=== PATIENT | male | born 1940 | race Caucasian/White ===

== ENCOUNTER 2018-02-07 02:08 | Emergency (ER) | payer MEDICARE, OTHER ==
[~2018-02-07] VITALS: Ht 182.9 cm; Wt 91.0 kg
[2018-02-07 03:11] VITALS: BP 118/72
[2018-02-07] MEDS ORDERED: PIPERACILLIN SODIUM/TAZOBACTAM 4.5 G in DEXT 5% WATER 100 ML IV SCH (03:15)
[2018-02-07] MEDS ORDERED: VANCOMYCIN 1 G PREMIX 200 ML IV SCH (03:15)
[2018-02-07] MEDS ORDERED: AZITHROMYCIN 500 MG in DEXT 5% WATER 250 ML IV SCH (03:15)
[2018-02-07] MEDS ORDERED: ACETAMINOPHEN 650MG SUPP PR SCH (03:25)
[2018-02-07 03:57] LABS: HEMATOCRIT. 40.7 % (42.0-52.0); HEMOGLOBIN. 13.4 g/dL (14.0-18.0); MEAN CORPUSCULAR HEMOGLOBIN 27.1 pg (28.0-32.0); MEAN CORPUSCULAR VOLUME 82.1 fL (80.0-94.0); MEAN PLATELET VOLUME 8.1 fl (7.4-10.4); PLATELET 283 x1000/uL (130-400); RED BLOOD CELL COUNT 4.95 mill/uL (4.7-6.1); RED CELL DISTRIBUTION WIDTH 13.7 % (11.6-14.6)
[2018-02-07 04:11] LABS: CHLORIDE 104 mEq/L (98-107)
[2018-02-07 04:15] LABS: INR 1.1; PARTIAL THROMBOPLASTIN TIME 30.8 sec (23.4-31.0); PROTHROMBIN TIME 11.3 sec (9.1-11.1)
[2018-02-07 04:20] LABS: CREATINE KINASE 87 IU/L (39-308)
[2018-02-07 05:38] LABS: PLATELET ESTIMATE NORMAL
== END 2018-02-07 05:44 | disposition left against medical advice (07) ==
LOC: ER 02:08 → CANBEDREQ 06:06
DX: A41.9 Sepsis, unspecified organism (principal); I10 Essential (primary) hypertension; F03.90 Unspecified dementia, unspecified severity, without behavioral disturbance, psychotic disturbance, mood disturbance, and anxiety; Z53.21 Procedure and treatment not carried out due to patient leaving prior to being seen by health care provider; Z85.46 Personal history of malignant neoplasm of prostate
CPT/HCPCS: 36415; 71045; 80053; 82550; 83605; 83690; 84145; 84484; 85025; 85610; 85730; 87040; 87804; 96365; 96366; 96368; 99291; J2543; J3370; J0456; J7060

== ENCOUNTER 2020-12-11 21:16 | Emergency (ER) | payer MEDICARE ==
[~2020-12-11] VITALS: Ht 177.8 cm; Wt 68.0 kg
[2020-12-11 21:43] VITALS: BP 135/61
[2020-12-11 22:10] LABS: BASOPHILS % 0.5 % (0.0-2.0); EOSINOPHILS % 1.3 % (0.0-5.0); HEMATOCRIT. 41.2 % (42.0-52.0); HEMOGLOBIN. 13.7 g/dL (14.0-18.0); MEAN CORPUSCULAR HEMOGLOBIN 27.2 pg (28.0-32.0); MEAN CORPUSCULAR VOLUME 81.7 fL (80.0-94.0); MEAN PLATELET VOLUME 7.9 fl (7.4-10.4); MONOCYTES % 11.3 % (2.0-8.0); NEUTROPHILS % 64.9 % (40.0-76.0); PLATELET 346 x1000/uL (130-400); RED BLOOD CELL COUNT 5.04 mill/uL (4.7-6.1); RED CELL DISTRIBUTION WIDTH 14.8 % (11.6-14.6)
[2020-12-11 22:18] LABS: CHLORIDE 107 mEq/L (98-107)
[2020-12-11 22:19] LABS: PROTHROMBIN TIME 11.2 sec (9.6-11.0)
[2020-12-11 22:23] LABS: ETHANOL BLOOD < 10 mg/dL
[2020-12-11 22:27] LABS: CREATINE KINASE 41 IU/L (39-308)
== END 2020-12-12 | disposition left against medical advice (07) ==
LOC: ER 21:16 → ENRESERV 23:38 → CANRESERV 23:38 → ER 12-12 → CANBEDREQ 12-12 03:06
DX: R41.82 Altered mental status, unspecified (principal); I49.9 Cardiac arrhythmia, unspecified; I10 Essential (primary) hypertension; G30.9 Alzheimer's disease, unspecified; F02.80 Dementia in other diseases classified elsewhere, unspecified severity, without behavioral disturbance, psychotic disturbance, mood disturbance, and anxiety
CPT/HCPCS: 36415; 71045; 80053; 80307; 80320; 80329; 82140; 82550; 82962; 83605; 83880; 84443; 84484; 85025; 86850; 86900; 87426; 93005; 99285; G0480

== ENCOUNTER 2022-03-20 16:25 | Emergency (ER) | payer MEDICARE ==
[~2022-03-20] VITALS: Ht 170.2 cm; Wt 65.0 kg
[2022-03-20] MEDS ORDERED: SODIUM CHLORIDE 0.9% 1,000 ML IV ONE (16:45)
[2022-03-20 17:34] LABS: BASOPHILS % 0.1 % (0.0-2.0); EOSINOPHILS % 0.8 % (0.0-5.0); HEMATOCRIT. 40.7 % (42.0-52.0); HEMOGLOBIN. 13.3 g/dL (14.0-18.0); LYMPHOCYTES % 16.5 % (20.0-50.0); MEAN CORPUSCULAR HEMOGLOBIN 27.8 pg (28.0-32.0); MEAN CORPUSCULAR VOLUME 85.4 fL (80.0-94.0); MEAN PLATELET VOLUME 7.7 fl (7.4-10.4); MONOCYTES % 11.6 % (2.0-8.0); PLATELET 424 x1000/uL (130-400); RED BLOOD CELL COUNT 4.77 mill/uL (4.7-6.1); RED CELL DISTRIBUTION WIDTH 15.4 % (11.6-14.6)
[2022-03-20 17:36] LABS: CLARITY URINE TURBID (CLEAR); COLOR URINE YELLOW (YELLOW); KETONES URINE NEGATIVE (NEGATIVE); LEUKOCYTE ESTERASE URINE 3+ (NEGATIVE); NITRITE URINE POSITIVE (NEGATIVE); OCCULT BLOOD URINE 2+ (NEGATIVE); PH URINE 8.5 (4.5-8.0); PROTEIN URINE 2+ (NEGATIVE)
[2022-03-20 17:42] LABS: CHLORIDE 106 mEq/L (98-107)
[2022-03-20] MEDS ORDERED: CEFTRIAXONE 1 G PREMIX 50 ML IV ONE (18:15)
[2022-03-20 19:42] VITALS: BP 106/79
== END 2022-03-20 20:26 | disposition left against medical advice (07) ==
LOC: ER 16:27
DX: R55 Syncope and collapse (principal); N39.0 Urinary tract infection, site not specified; I10 Essential (primary) hypertension
CPT/HCPCS: 36415; 70450; 71045; 80053; 81003; 82962; 83880; 84484; 85025; 93005; 96365; 96366; 99285; J0696; J7030